=== PATIENT | female | born 1935 | race Caucasian/White ===

== ENCOUNTER 2017-04-26 09:49 | Emergency (ER) | payer MEDICARE ==
[~2017-04-26] VITALS: Ht 167.6 cm; Wt 63.8 kg
[~2017-04-26 09:49] MED LIST: AMLO10TA4 PO; ASPI325T17 PO; CLOB15CR19 TP; FLUT16SP NAS; LISI-170 PO; MECL25TA4 PO; NYST15CR2 TP; ONDA4TAB13 SL; POLY17PO3 PO; PROM25TA10 PO; ROSU5TAB PO; SENN1TAB7 PO; TRIA15CR3 TP
[2017-04-26] MEDS ORDERED: KETOROLAC 30 MG/1 ML ONE (10:59)
[2017-04-26] MEDS ORDERED: DIAZEPAM 5 MG TABLET ONE (10:59)
[2017-04-26] MEDS ORDERED: HYDROcodone/APAP 5/325 TABLET ONE (10:59)
[2017-04-26] MEDS ORDERED: KETOROLAC 30 MG/1 ML IM ONE (11:00)
[2017-04-26] MEDS ORDERED: HYDROcodone/APAP 5/325 TABLET PO ONE (11:00)
[2017-04-26] MEDS ORDERED: DIAZEPAM 5 MG TABLET PO ONE (11:00)
[2017-04-26 12:52] VITALS: BP 145/87
== END 2017-04-26 12:55 | disposition home or self-care (01) ==
LOC: ED 12:40
DX: S39.012A Strain of muscle, fascia and tendon of lower back, initial encounter (principal); S29.012A Strain of muscle and tendon of back wall of thorax, initial encounter; E78.00 Pure hypercholesterolemia, unspecified; I25.10 Atherosclerotic heart disease of native coronary artery without angina pectoris; E78.5 Hyperlipidemia, unspecified; I12.9 Hypertensive chronic kidney disease with stage 1 through stage 4 chronic kidney disease, or unspecified chronic kidney disease; N18.1 Chronic kidney disease, stage 1; G62.9 Polyneuropathy, unspecified; X58.XXXA Exposure to other specified factors, initial encounter; Y93.89 Activity, other specified; Y92.89 Other specified places as the place of occurrence of the external cause; Y99.8 Other external cause status
CPT/HCPCS: 72110; 81001; 96372; 99285; J1885